=== PATIENT | female | born 1975 | race Caucasian/White ===

== ENCOUNTER 2017-01-27 18:22 | Emergency (ER) | payer BC ==
[2017-01-27] MEDS ORDERED: Cephalexin CAP* 500 MG PO ONE ×2 (20:33→20:40)
[2017-01-27 20:44] VITALS: BP 122/63
--- NOTE | 2017-01-27 20:49 | UC ---
Breast Complaint - HPI Summary HPI Summary: TWO DAYS OF LEFT BREAST TENDERNESS AND SWOLLEN "RIDGE" IN BREAST TISSUE. PATIENT STATES SIMILAR CONCERN HAPPENED ONE YEAR AGO DIAGNOSED MASTITIS, TREATED BY COMPONENT [employer] SUPER[employer]OR IN [place]. - History of Current Complaint Hx Obtained From: Patient Onset/Duration: Started Days Ago, Still Present Timing: Lasting Days Breast Pain Radiates To: Left Breast Pain Aggravating Factors: Palpation Breast Pain Alleviating Factors: Nothing Breast Associated Signs/Symptoms: Nodule/Mass Breast Related History: Similar Diagnosis as: - 2016 MASTITIS - Allergy/Home Medications Allergies/Adverse Reactions: Allergies Allergy/AdvReac Type Severity Reaction Status Date / Time antibiotic Allergy Vomiting Uncoded 01/27/17 20:13 dairy and wheat Allergy Congestion Uncoded 01/27/17 20:13 Home Medications: Home Medications Aspirin [Aspirin 81 MG TAB] 81 mg PO QPM 01/27/17 [History Confirmed 01/27/17] Metoprolol Succinate [Toprol Xl] 12 mg PO QPM 01/27/17 [History Confirmed ] PMH/Surg Hx/FS Hx/Imm Hx Previously Healthy: Yes - Surgical History Surgical History: Yes Surgery Procedure, Year, and Place: c section x2, [facility] - Family History Known Family History: Negative: Respiratory Disease - Social History Occupation: Employed Full-time Lives: With Family Alcohol Use: None Substance Use Type: None Smoking Status (MU): Never Smoked Tobacco Review of Systems Constitutional: Negative Skin: Other - LEFT BREAST TENDERNESS Eyes: Negative ENT: Negative Respiratory: Negative Cardiovascular: Negative Gastrointestinal: Negative Genitourinary: Negative Motor: Negative Neurovascular: Negative Musculoskeletal: Negative Neurological: Negative Psychological: Negative Is Patient Immunocompromised?: No All Other Systems Reviewed And Are Negative: Yes Physical Exam Triage Information Reviewed: Yes Appearance: Well-Appearing, Well-Nourished, Pain Distress - MILD Vital Signs: Initial Vital Signs Temp 98.7 F 01/27/17 20:00 Pulse 90 01/27/17 20:00 Resp 28 01/27/17 20:00 BP 119/48 01/27/17 20:00 Vital Signs Reviewed: Yes Eye Exam: Normal ENT Exam: Normal ENT: Positive: Normal ENT inspection Dental Exam: Normal Neck exam: Normal Neck: Positive: Supple, Nontender, No Lymphadenopathy Respiratory: Positive: Chest non-tender, Lungs clear, Normal breath sounds, No respiratory distress, No accessory muscle use, Other: - PRESSURED SPEECH, MILD TACHYPNEA Cardiovascular Exam: Normal Cardiovascular: Positive: RRR, No Murmur, Pulses Normal, Brisk Capillary Refill Abdominal Exam: Normal Musculoskeletal Exam: Normal Musculoskeletal: Positive: Strength Intact, ROM Intact Neurological Exam: Normal Psychological Exam: Normal Skin: Positive: Other - LEFT BREAST TENDERNESS FIRM TENDER FIBROCYSTIC NODULE AT 5 OCLOCK, NO NOTICABLE SKIN ABDNORMALITIES OR DISCHARGE. Breast Pain Course/Dx - Course Course Of Treatment: PATIENT TO NOTIFY/ FOLLOW UP WITH PRIMARY CARE PROVIDER TOMORROW REGARDING ABNORMAL VITAL SIGNS (T[place]NEA, LOW BLOOD PRESSURE). PATIENT WILL SEEK EMERGENCY DEPARTMENT EVALUATION FOR THESE SYMPTOMS IF FEVER DEVELOPS OR IF SYMPTOMS CONTINUE OR IF NEW SYMPTOMS DEVELOP. PATIENT WILL CALL COMPONENT AS[employer]ER SUPERVISOR FOR PROMPT FOLLOW UP REGARDING MASTITIS. REFERRAL FOR DR. MICHELLE GIVEN IF NECESSARY. - Differential Diagnoses Differential Diagnosis/HQI/PQRI: Breast Abscess, Breast Mass, Cystic Myalgia, Fibrocystic Breast Disease, Mastitis - Diagnoses Provider Diagnoses: Mastitis of left breast unrelated to or - Provider Notifications Instructed by Provider To: Have Pt Call For Appt. Discharge - Discharge Plan Condition: Stable Disposition: HOME Prescriptions: Cephalexin CAP* [Keflex CAP*] 500 mg PO QID #28 cap Patient Education Materials: Mastitis (ED) Referrals: Karen Michelle MD [Medical Doctor] - If Needed Rocio Gilbert MD [Primary Care Provider] - Ferny Jha Jr., MD [Medical Doctor] -
== END 2017-01-27 21:01 | disposition home or self-care (01) ==
LOC: UCCORT 18:22
DX: N61.0 Mastitis without abscess (principal); Z88.1 Allergy status to other antibiotic agents; Z91.011 Allergy to milk products
CPT/HCPCS: 99203; A9270-GY; G0463